=== PATIENT | female | born 1980 | race Caucasian/White ===

== ENCOUNTER 2019-03-21 09:54 | Inpatient (IN) | payer OTHER ==
[~2019-03-21 09:54] MED LIST: Dexamethasone 4 MG/ML SDV ONE; Glycopyrrolate 0.2 MG/ML 5 ML MDV ONE; Lactated Ringers 0 ML ONE; Midazolam 1 MG/ML 2 ML SDV ONE; Neostigmine Methylsulfate 1 MG/ML 5 ML Syringe ONE; Ondansetron 4 MG/2 ML SDV ONE; Propofol 200 MG/20 ML SDV ONE; Rocuronium 50 MG/5 ML Vial ONE; Succinylcholine 200 MG/10 ML MDV ONE; cefOXitin 2 GM Vial ONE; fentaNYL 250 MCG/5 ML SDV ONE
[2019-03-21] MEDS ORDERED: Lidocaine 2% 100 MG/5 ML Syringe IVPUSH SCH (10:00)
[2019-03-21] MEDS ORDERED: Ketamine 50 MG in Sodium Chloride 0.9% 49.5 ML IV SCH (10:00)
[2019-03-21] MEDS ORDERED: Ketamine 500 MG/5 ML MDV IV SCH (10:00)
[2019-03-21] MEDS ORDERED: Celecoxib 200 MG Cap PO ONE (10:00)
[2019-03-21] MEDS ORDERED: Acetaminophen 500 MG Tab PO ONE (10:00)
[2019-03-21] MEDS ORDERED: Scopolamine 1.5 MG Transdermal Patch TOP ONE (10:00)
[2019-03-21] MEDS ORDERED: Gabapentin 300 MG Cap PO ONE (10:00)
[2019-03-21] MEDS ORDERED: Dextrose 5%-Lactated Ringers 1,000 ML IV SCH (10:30)
[2019-03-21] MEDS ORDERED: cefOXitin 2 GM in Sodium Chloride 0.9% 50 ML IV ONE (10:30)
[2019-03-21] MEDS ORDERED: fentaNYL 250 MCG/5 ML SDV ONE (10:37)
[2019-03-21] MEDS ORDERED: Dexamethasone 4 MG/ML SDV ONE (10:38)
[2019-03-21] MEDS ORDERED: Rocuronium 50 MG/5 ML Vial ONE (10:38)
[2019-03-21] MEDS ORDERED: Succinylcholine 200 MG/10 ML MDV ONE (10:38)
[2019-03-21] MEDS ORDERED: Ondansetron 4 MG/2 ML SDV ONE (10:38)
[2019-03-21] MEDS ORDERED: Glycopyrrolate 0.2 MG/ML 5 ML MDV ONE (10:38)
[2019-03-21] MEDS ORDERED: Propofol 200 MG/20 ML SDV ONE (10:38)
[2019-03-21] MEDS ORDERED: Neostigmine Methylsulfate 1 MG/ML 5 ML Syringe ONE (10:38)
[2019-03-21] MEDS ORDERED: Ondansetron 4 MG/2 ML SDV IVPUSH ONE (14:33)
[2019-03-21] MEDS ORDERED: hydrOXYzine HCl 100 MG/2 ML SDV IM ONE (14:33)
[2019-03-21] MEDS ORDERED: Metoclopramide 10 MG/2 ML SDV IVPUSH ONE (14:51)
[2019-03-21] MEDS: Dextrose 5%-Lactated Ringers 1,000 ML IV SCH (15:00)
[2019-03-21] MEDS ORDERED: Labetalol 20 MG/4 ML Syringe IVPUSH PRN (15:47)
[2019-03-21] MEDS ORDERED: hydrOXYzine HCl 100 MG/2 ML SDV IM PRN (15:47)
[2019-03-21] MEDS ORDERED: HYDROmorphone 1 MG/ML Syringe IV PRN (15:47)
[2019-03-21] MEDS ORDERED: HYDROmorphone 0.5 MG/0.5 ML Syringe IVPUSH PRN (15:47)
[2019-03-21] MEDS ORDERED: diphenhydrAMINE 50 MG/ML SDV IVPUSH PRN (15:47)
[2019-03-21] MEDS ORDERED: MVI, Adult with Vitamin K 10 ML, Thiamine 200 MG, Chromium/Copper/Mang/Selen/Zn 1 ML in... IV SCH ×4 (16:00)
[2019-03-21] MEDS ORDERED: Pantoprazole 40 MG Vial IVPUSH SCH (16:00)
[2019-03-21] MEDS: Acetaminophen Soln 650 MG/20.3 ML UD Cup PO SCH ×2 (16:21→22:15)
[2019-03-21] MEDS: Lidocaine 0.4%/D5W 2 GM/500 ML BAG IV SCH (16:25)
[2019-03-21] MEDS: cefOXitin 2 GM in Sodium Chloride 0.9% 50 ML IV SCH (17:38)
[2019-03-21] MEDS: Heparin Sodium 5,000 Units/ML Vial SUBCUT SCH (19:31)
[2019-03-21] MEDS: Ondansetron 4 MG/2 ML SDV IVPUSH PRN (19:31)
[2019-03-21] MEDS: Metoclopramide 10 MG/2 ML SDV IVPUSH PRN (21:20)
[2019-03-21] MEDS: Gabapentin 250 MG/5 ML Solution ML 470 ML Bottle PO SCH (21:27)
[2019-03-22] MEDS: cefOXitin 2 GM in Sodium Chloride 0.9% 50 ML IV SCH ×3 (00:16→11:12)
[2019-03-22] MEDS: Dextrose 5%-Lactated Ringers 1,000 ML IV SCH ×2 (00:18→06:47)
[2019-03-22] MEDS ORDERED: Iohexol 647 MG/ML 50 ML SDV PO STA (01:14)
--- NOTE | 2019-03-22 02:05 | CRLCR ---
INDICATION: Status post Kelly-en-Y gastrectomy sleeve, evaluate for leakage TECHNIQUE: X-ray abdomen upright with oral contrast two views. COMPARISON: None FINDINGS: Oral contrast is noted to transit across the GE junction and across the Kelly EN Y into the proximal small bowel. No definitive evidence for extravasation of contrast. Percutaneous drainage tube projects over the left upper quadrant. IMPRESSION: No definitive evidence for extravasation of oral contrast. Normal transit of oral contrast across the GE junction and through the Kelly EN Y into the proximal small bowel. Dictated by Surinder Bo MD @ Mar 22 2019 2:03AM Signed by Dr. Surinder Bo @ Mar 22 2019 2:03AM
[2019-03-22] MEDS: Acetaminophen Soln 650 MG/20.3 ML UD Cup PO SCH ×4 (05:02→21:00)
[2019-03-22] MEDS ORDERED: Dextrose 5%-Lactated Ringers 1,000 ML IV SCH (07:15)
[2019-03-22] MEDS: Gabapentin 250 MG/5 ML Solution ML 470 ML Bottle PO SCH ×3 (08:37→20:19)
[2019-03-22] MEDS: Heparin Sodium 5,000 Units/ML Vial SUBCUT SCH ×2 (08:37→20:21)
[2019-03-22] MEDS: Celecoxib 200 MG Cap PO SCH (08:37)
[2019-03-22] MEDS: SCOPOLAMINE PATCH CHECK TOP SCH (08:38)
[2019-03-22] MEDS: Lidocaine 0.4%/D5W 2 GM/500 ML BAG IV SCH (09:12)
--- NOTE | 2019-03-22 09:24 | PN ---
DATE OF SERVICE: 03/22/2019 The patient is postop day 1 from a laparoscopic sleeve gastrectomy. No major problems have been noted overnight. Oral intake is satisfactory. We will go up to a step 2 diet today. Back down the IV rate with pulmonary toilet. She will likely be ready for discharge home tomorrow. Elías Lewis MD /[id number]
[2019-03-22] MEDS: Metoclopramide 10 MG/2 ML SDV IVPUSH PRN ×2 (10:09→20:19)
[2019-03-22] MEDS ORDERED: MVI, Adult with Vitamin K 10 ML, Thiamine 200 MG, Chromium/Copper/Mang/Selen/Zn 1 ML in... IV SCH ×4 (16:00)
[2019-03-22] MEDS ORDERED: Pantoprazole 40 MG Delayed-Release Granules 1 Packet PO SCH (16:00)
[2019-03-22] MEDS: Ondansetron 4 MG/2 ML SDV IVPUSH PRN (22:37)
[2019-03-23] MEDS: Acetaminophen Soln 650 MG/20.3 ML UD Cup PO SCH ×2 (04:43→09:15)
[2019-03-23] MEDS: Metoclopramide 10 MG/2 ML SDV IVPUSH PRN (04:43)
[2019-03-23] MEDS: Heparin Sodium 5,000 Units/ML Vial SUBCUT SCH (07:35)
[2019-03-23] MEDS: Celecoxib 200 MG Cap PO SCH (07:36)
[2019-03-23] MEDS: Gabapentin 250 MG/5 ML Solution ML 470 ML Bottle PO SCH (08:44)
[2019-03-23] MEDS: SCOPOLAMINE PATCH CHECK TOP SCH (08:45)
[2019-03-23] MEDS ORDERED: Cyanocobalamin (Vitamin B12) 1,000 MCG/ML SDV IM ONE (09:00)
[2019-03-23] MEDS ORDERED: Scopolamine 1.5 MG Transdermal Patch TRDERM ONE (09:30)
--- NOTE | 2019-03-23 13:57 | OR ---
DATE OF PROCEDURE: 03/21/2019 PREOPERATIVE DIAGNOSIS: Morbid obesity. POSTOPERATIVE DIAGNOSES: 1. Morbid obesity. 2. Marked hepatomegaly. 3. Paraesophageal diaphragmatic hernia. 4. Mediastinal lipoma. OPERATIVE PROCEDURES: Diagnostic laparoscopy with: 1. Laparoscopic sleeve gastrectomy (75330). 2. Ovidio-Cut needle liver biopsy (14936). 3. Repair of paraesophageal diaphragmatic hernia (43195). 4. Excision of mediastinal lipoma (82448). ANESTHESIA: General. TELECOMMUNICATIONS LINESWORKER: Nenita Goldstein PA-C. INDICATIONS FOR PROCEDURE: This is a 38-year-old presenting with longstanding morbid obesity and increasingly significant comorbidities. After preoperative evaluation and discussion, she wished to proceed with a laparoscopic sleeve gastrectomy. Potential risks of the procedure including bleeding, infection, leaks from GI tract staple line, possible problems with bowel obstruction over time, inadequate weight loss over time, and the remote possibility of cardiopulmonary, septic, or hemorrhagic complications leading to were discussed, and the patient wishes to proceed. DETAILS OF PROCEDURE: The patient was taken to the operating room and placed in a supine position. After general endotracheal anesthesia was induced, she was converted to a lithotomy position, and the abdomen was prepped and draped. At 15 cm inferior and 5 cm left of the xiphoid process, a transverse incision was made, and the peritoneal cavity was entered under direct vision with an Optiview trocar and inflated to 15 mmHg pressure with CO2. Laparoscope was reinserted and no underlying trocar insertion site injuries were seen. Following this, five additional trocars were placed across the upper and mid abdomen, and bilateral transversus abdominis plane blocks were placed. The liver was noted to be markedly enlarged and fatty-infiltrated. Ovidio-Cut needle biopsy was obtained from the left lobe of liver. Minimal bleeding from the biopsy sites was controlled with electrocautery. At this point, the liver was retracted anteriorly. The patient was noted to have moderate-sized paraesophageal diaphragmatic hernia with prolapsed portion of the gastric fundus and perigastric fat in a plane anterior to the course of the esophagus. This was reduced. The peritoneum overlying it was incised. This was then reflected downward. During the course of the dissection, a mediastinal lipoma was encountered, and this was excised as well to facilitate adequate repair of the diaphragmatic crura. This repair was then accomplished with 0 Ethibond sutures reinforced with PTFE pledgets placed in an anterior location. At this point, the omentum along the midportion of the greater curvature was initially divided with Harmonic Scalpel. This continued upward up to and through the highest portion and posterior short gastric vessels. The fundus was then dissected away from the left john until that was well delineated. The dissection then continued with division of the omentum down to 0.2 cm proximal to the pylorus. At that point, the initial staple line from the sleeve gastrectomy was mapped out, beginning 2 cm proximal to the pylorus and then extending upward underneath the incisura angularis, maintaining an adequate distance from that landmark so as to avoid kinking off the subsequent remaining stomach. The first 3 firings were with ANNAMARIA black loads. Following that, a 32-English suction tube was placed per Anesthesia orally and then positioned along the lesser curvature of the stomach and from there into the antrum. This was pulled up against the lesser curvature, where suction was applied. At that point, then the sleeve gastrectomy was completed with initial firings of reinforced black and purple loads up to and through the upper aspect of the stomach. At the very apex of the staple line, there was slight veering off to the left, so as to avoid stapling the esophagus itself. At this point, the entire staple line was inspected and found to be intact. Fibrin sealant was applied to the area of the gastroesophageal junction initially and omentum tacked up against that area. Fibrin sealant was then placed along the remainder of the gastrectomy staple line with omentum likewise being pulled up in that area. With the pylorus being compressed, the 32-English tube, which was now off suction, was then injected with air while the gastrectomy staple line submerged with an antibiotic-containing saline solution. No leaks or bleeding were noted. At that point, the catheter was removed. Gastrectomy specimen was retrieved through the left lateral trocar site and a [place] drain brought through the left lateral trocar site and positioned adjacent to the esophagogastric junction, from there up into the area of the splenic fossa. With no further problems noted, the trocars were removed and the peritoneal cavity deflated. The incisions were closed with 4-0 Vicryl skin stitch and drain affixed with 4-0 Vicryl stitch as well. The patient was taken to the recovery room in a satisfactory condition. Physician railways assistant, Nenita Goldstein, played an essential role in assisting in this case, helping to position the patient, retract structures as needed, as well as suturing and cutting sutures when indicated. Her presence improved patient safety and decreased the operative time. Elías Lewis MD /[id number]
--- NOTE | 2019-03-24 09:19 | DISCH ---
ADMISSION DIAGNOSES: 1. Morbid obesity, BMI of 37. 2. Migraine headaches. 3. Pure hypercholesterolemia. 4. History of menorrhagia. 5. History of dysmenorrhea. 6. Psoriasis. DISCHARGE DIAGNOSES: Laparoscopic sleeve gastrectomy, liver biopsy, diaphragmatic hernia, and mediastinal lipoma for morbid obesity, hepatomegaly, diaphragmatic hernia, and mediastinal lipoma. Date of surgery: 03/21/2019. Surgeon: Elías Lewis MD. HISTORY: Kylie Penaloza is a 38-year-old female with longstanding history of morbid obesity and increasing comorbidities. After preoperative evaluation and discussion of possible risks and possible complications, she wished to proceed with surgical procedure. HOSPITAL COURSE: Kylie had her surgery on 03/21/2019. She had no operative complications. On postoperative day #1, she did have an increase in nausea, was treated with Zofran, scopolamine patch, and Reglan. This did resolve. She was started on step 2 gastric bypass diet without complications, received dietary instruction. On postoperative day #2, was able to be discharged to home without any complications. Her activity was good. Oral intake adequate. Received dietary instruction, vitamin B12 injection, vital signs were stable, and pain was well managed. Activity was good. PHYSICAL EXAMINATION: GENERAL: Kylie Penaloza is a 38-year-old female. Alert, orientated. SKIN: Warm and dry. VITAL SIGNS: Height is 5 feet 8 inches, weight is 246 pounds. BMI 37.4. TPR 98.6, 50, 18, blood pressure 121/61. HEENT: Negative. NECK: Supple. HEART: Regular rate and rhythm. LUNGS: Clear. ABDOMEN: MOO drain removed, 4 x 4 over MOO drain site. Trocar incisions look good. Sutures intact. Soft, minimally tender. Abdominal binder has been on. EXTREMITIES: Without peripheral edema. DISPOSITION: Discharged to home. CONDITION: Stable and improving. FOLLOWUP: Followup appointment with Nenita Goldstein PA-C, at [place], [place] on 04/05/2019 at 11:00 a.m. NEW PRESCRIPTIONS: 1. Zofran ODT 4 mg every 4 hours p.r.n. nausea, #30, one refill. 2. Reglan 10 mg q.6 hours p.r.n. nausea, #30. 3. Tylenol 650 mg oral q.6 hours p.r.n. pain. 4. Celebrex 200 mg daily, #14. DISCHARGE MEDICATIONS: She is to resume home medication: 1. Clobetasol one film topical twice daily p.r.n. rash. 2. Lidex 0.05% topical solution twice daily. 3. Imitrex 25 mg oral p.r.n. migraine headache. 4. She is to stop taking her vitamins and supplements until after first postoperative appointment. DIET: Step 2 gastric bypass diet with no cereal until 04/22/2019. ACTIVITY: No lifting over 10 pounds for 6 weeks. Other activity: Walk at least 6 times daily inside your home. Driving after discharge: Do not drive for 1 week. May shower. Wear abdominal binder for 2 weeks and then as tolerated. DISCHARGE INSTRUCTIONS: Notify provider if any fever, increased pain, nausea, or vomiting. Keep site clean and dry. SPECIAL INSTRUCTIONS: Use incentive spirometer 10 times every hour while awake for 2 weeks. Take off scopolamine patch in three days on 03/26/2019.
== END 2019-03-23 10:25 | disposition home or self-care (01) | DRG 621 ==
LOC: JP.MS 09:54 → JP.SDS 09:55 → EDSEX 09:55 → EDSTATUS 11:00 → JP.2SS 14:00
PROVIDERS: ADMIT Surgery; ATTEND Surgery
PROC: 0WBC4ZZ Excision of Mediastinum, Percutaneous Endoscopic Approach (ICD-10-PCS; principal; 2019-03-21)
PROC: 0DB64Z3 Excision of Stomach, Percutaneous Endoscopic Approach, Vertical (ICD-10-PCS; principal; 2019-03-21)
PROC: 0FB24ZX Excision of Left Lobe Liver, Percutaneous Endoscopic Approach, Diagnostic (ICD-10-PCS; principal; 2019-03-21)
DX: E66.01 Morbid (severe) obesity due to excess calories (principal); G43.909 Migraine, unspecified, not intractable, without status migrainosus; E78.00 Pure hypercholesterolemia, unspecified; L40.9 Psoriasis, unspecified; K44.9 Diaphragmatic hernia without obstruction or gangrene; R16.0 Hepatomegaly, not elsewhere classified; D17.4 Benign lipomatous neoplasm of intrathoracic organs; Z97.5 Presence of (intrauterine) contraceptive device; Z79.899 Other long term (current) drug therapy; Z88.8 Allergy status to other drugs, medicaments and biological substances; Z68.41 Body mass index [BMI] 40.0-44.9, adult
CPT/HCPCS: 36415; 74240; 81025; 82962; 86850; 86900; 86901; 88304; 88307; 88313; A9270-GY; C9113; J0171; J0330; J0694; J1100; J1170; J1644; J2001; J2250; J2405; J2704; J2710; J2765; J2795; J3010; J3410; J3411; J3420; J3490; J7042; J7050; J7120; Q9967